=== PATIENT | male | born 1950 | race Caucasian/White ===

== ENCOUNTER 2021-05-01 06:06 | Day surgery (SDC) | payer BC ==
[~2021-05-01 06:06] MED LIST: Dextrose 5%-0.45% NaCl 1,000 ML IV SCH; Sodium Chloride 0.9% 10 ML Syringe FLUSH SCH
[2021-05-01] MEDS ORDERED: Midazolam 1 MG/ML 2 ML SDV IV ONE ×3 (06:07→06:46)
[2021-05-01] MEDS ORDERED: fentaNYL 100 MCG/2 ML SDV IV ONE ×3 (06:07→06:45)
[2021-05-01] MEDS ORDERED: fentaNYL 100 MCG/2 ML SDV ONE (06:14)
[2021-05-01] MEDS ORDERED: Midazolam 1 MG/ML 2 ML SDV ONE (06:14)
== END 2021-05-01 09:04 | disposition home or self-care (01) ==
LOC: DL.ENDO 06:06
PROVIDERS: ATTEND Internal Medicine Gastroenterology
DX: K21.00 Gastro-esophageal reflux disease with esophagitis, without bleeding (principal); K44.9 Diaphragmatic hernia without obstruction or gangrene; E66.09 Other obesity due to excess calories; I10 Essential (primary) hypertension; E78.5 Hyperlipidemia, unspecified; D69.6 Thrombocytopenia, unspecified; N52.9 Male erectile dysfunction, unspecified; Z98.890 Other specified postprocedural states; Z01.812 Encounter for preprocedural laboratory examination; Z20.822 Contact with and (suspected) exposure to COVID-19; Z68.29 Body mass index [BMI] 29.0-29.9, adult
CPT/HCPCS: 43239; 87077; 87635; J2250; J3010; J7042; U0002